=== PATIENT | male | born 2000 | race Caucasian/White ===

== ENCOUNTER → 2018-02-03 12:07 | Outpatient (CLI) | payer OTHER, MEDICAID, SELFPAY ==
--- NOTE | 2018-02-03 12:11 | DI.RAD.S_ITS ---
PROCEDURE: XR LUMBAR SPINE 2-3V INDICATIONS: back pain lower left lumbar region TECHNIQUE: 2 views of the lumbar spine were acquired. COMPARISON: None. FINDINGS: Bones: 5 [id number] vertebrae are present. There is normal bony alignment. No vertebral body compression fractures. No suspicious bony lesions. Soft tissues: Overlying bowel gas pattern is normal. No suspicious soft tissue calcifications. IMPRESSION: No trauma found. Source of low back pain not identified. Dictated by: Bijan Jefferson M.D. on 02/03/2018 at 13:37 Approved by: Bijan Jefferson M.D. on 02/03/2018 at 13:37
== END ==
PROVIDERS: PCP Family Medicine; Visit Provider Internal Medicine
DX: M54.5 Low back pain (principal); M54.6 Pain in thoracic spine
CPT/HCPCS: 72100

== ENCOUNTER → 2022-06-29 15:30 | Outpatient (CLI) | payer SELFPAY ==
[2022-06-29 17:18] LABS: Influenza A - CEPHEID Flu A POSITIVE (NEGATIVE); Influenza B - CEPHEID Flu B NEGATIVE (NEGATIVE); Respiratory Syncytial Virus Negative (Negative)
[2022-06-29 17:22] LABS: COVID-19 CEPHEID 4-PLEX PCR Negative (Negative)
== END ==
PROVIDERS: Visit Provider Student in an Organized Health Care Education/Training Program
DX: R05.1 Acute cough (principal); Z20.822 Contact with and (suspected) exposure to COVID-19
CPT/HCPCS: 0241U

== ENCOUNTER 2022-07-01 09:53 | Emergency (ER) | payer SELFPAY ==
[2022-07-01 10:20] VITALS: BP 133/78; PULSE 119; RESP 16; TEMP 37; O2SAT 96; BMI 21.2
[2022-07-01 14:33] VITALS: BP 130/77; PULSE 93; O2SAT 97
[2022-07-01] MEDS: ONDANSETRON 4 MG/2 ML INJ IV (14:44)
[2022-07-01] MEDS: SODIUM CHLORIDE 0.9% 1,000 ML 1000 ML IV (14:45)
--- NOTE | 2022-07-01 14:51 | ED_ITS ---
HPI - Nausea/Vomiting/Diarrhea <Soo Johnson PA-C - Last Filed: 07/01/22 17:33> General Chief complaint: Nausea/Vomiting/Diarrhea Stated complaint: flu+, not drinking or eating,vomiting Time Seen by Provider: 07/01/22 14:39 Source: patient Mode of arrival: Ambulatory History of Present Illness HPI Narrative: 22-year-old male who presents with concern for persistent vomiting and generally feeling unwell in the setting of flu. Patient states he is on a able to keep food and fluids down. He states that the oral Zofran he was prescribed was helpful yesterday but as of this morning he thinks he has vomited about 40 times. He says yesterday his vomit was clear and today it looks darker like bile. He has been alternating Tylenol and ibuprofen as well because of a sore throat. He states since he has been vomiting a lot it feels like there is ?razor blades? in his throat today from vomiting stomach acid which has made it difficult for him to eat and drink. He states today he has also had loose green stools approximately 10 of them. He denies any abdominal pain. Also denies chest pain and shortness of breath. His primary complaint is his sore throat as well as his frequent vomiting. He denies being a heavy drinker or any history of ulcers, also denies shortness of breath, frequent cough, productive cough, chest pain or any other symptoms. He does state that he uses (smokes) marijuana occasionally but not every day. Related Data Previous Rx's Medication Instructions Recorded cyclobenzaprine 5 mg tablet 5 mg PO BEDTIME PRN muscle spasm 02/03/18 #15 tabs valacyclovir 1 gram tablet 2,000 mg PO BID #4 tabs 07/27/19 albuterol sulfate 90 mcg/actuation 2 puff inhalation Q6H PRN 06/29/22 aerosol inhaler shortness of breath or wheezing #6.7 grams benzonatate 100 mg capsule 100 mg PO TID PRN cough 7 days #21 06/29/22 caps guaifenesin 100 mg/5 mL oral liquid 200 mg (10 mL) PO Q4H PRN cough, 06/29/22 chest congestion 10 days #500 mL ondansetron 4 mg disintegrating 4 mg PO Q8H PRN nausea and 06/29/22 tablet vomiting #30 tabs codeine 6.3 mg-guaifenesin 100 10 ml PO Q4-6H PRN flu symptoms 7 07/01/22 mg/5 mL oral liquid days #473 mL oseltamivir 75 mg capsule (Tamiflu) 75 mg PO BID 5 days #10 caps 07/01/22 Allergies Allergy/AdvReac Type Severity Reaction Status Date / Time No Known Drug Allergies Allergy Verified 07/01/22 10:20 Review of Systems <Soo Johnson PA-C - Last Filed: 07/01/22 17:33> Review of Systems Narrative: Unremarkable except as noted in the HPI Patient History <Soo Johnson PA-C - Last Filed: 07/01/22 17:33> Social History Smoking Status: Current every day smoker Smoking Status: Current every day smoker alcohol intake frequency: holidays/special occasions only Substance Use Type: does not use Exam <Soo Johnson PA-C - Last Filed: 07/01/22 17:33> Narrative Exam Narrative: GENERAL: 22 year old patient appears stated age. Well-developed patient, in mild distress, alert and interactive. HEAD: Atraumatic. Normocephalic. EYES: Pupils equal round and reactive. Extraocular motions intact. No scleral icterus. No injection or drainage. ENT: Nose without bleeding, purulent drainage. Throat with generalized erythema, without tonsillar hypertrophy or exudate. Airway patent. There is slight lymphadenopathy tonsillar and slight tenderness. NECK: Trachea midline. Non tender CARDIOVASCULAR: Regular rate and rhythm without murmurs, gallops, or rubs. RESPIRATORY: Clear to auscultation. Breath sounds equal bilaterally. No wheezes, rales, or rhonchi. GASTROINTESTINAL: Abdomen soft, non-tender, nondistended. EXTREMITIES: No edema or joint tenderness. BACK: Nontender without deformity or crepitance. No flank tenderness. NEURO: AOx3. SKIN: No rash or erythema of visible areas Initial Vital Signs Initial Vital Signs: Vital Signs Temperature 98.6 F 07/01/22 10:20 Pulse Rate 119 H 07/01/22 10:20 Respiratory Rate 16 07/01/22 10:20 Blood Pressure 133/78 07/01/22 10:20 Pulse Oximetry 96 07/01/22 10:20 Oxygen Delivery Method 07/01/22 10:20 <Josette Galvez DO - Last Filed: 07/02/22 19:30> Initial Vital Signs Initial Vital Signs: Vital Signs Temperature 98.6 F 07/01/22 10:20 Pulse Rate 119 H 07/01/22 10:20 Respiratory Rate 16 07/01/22 10:20 Blood Pressure 133/78 07/01/22 10:20 Pulse Oximetry 96 07/01/22 10:20 Oxygen Delivery Method 07/01/22 10:20 Course <Soo Johnson PA-C - Last Filed: 07/01/22 17:33> Orders Ordered: Discontinued Medications Guaifenesin/Codeine Phosphate (Codeine/Guaifenesin Liquid 5ml Udc) 10 ml PO NOW ONE Stop: 07/01/22 15:10 Last Admin: 07/01/22 15:41 Dose: 10 ml Documented By: YUE Sodium Chloride (Normal Saline 0.9%) 1,000 mls @ 1,000 mls/hr IV BOLUS ONE Stop: 07/01/22 15:38 Last Infusion: 07/01/22 16:44 Dose: 0 mls/hr Documented By: Admin: 07/01/22 14:45 Dose: 1,000 mls/hr Documented By: YUE Ondansetron HCl (Ondansetron 4 Mg/2 Ml Inj) 4 mg IV NOW ONE Stop: 07/01/22 14:40 Last Admin: 07/01/22 14:44 Dose: 4 mg Documented By: YUE Vital Signs Vital signs: Vital Signs - 8 hr 07/01/22 14:33 07/01/22 14:33 07/01/22 15:00 Pulse Rate 93 H 89 Blood Pressure 130/77 Pulse Oximetry 97 94 <Josette Galvez DO - Last Filed: 07/02/22 19:30> Orders Ordered: Discontinued Medications Guaifenesin/Codeine Phosphate (Codeine/Guaifenesin Liquid 5ml Udc) 10 ml PO NOW ONE Stop: 07/01/22 15:10 Last Admin: 07/01/22 15:41 Dose: 10 ml Documented By: YUE Sodium Chloride (Normal Saline 0.9%) 1,000 mls @ 1,000 mls/hr IV BOLUS ONE Stop: 07/01/22 15:38 Last Infusion: 07/01/22 16:44 Dose: 0 mls/hr Documented By: Admin: 07/01/22 14:45 Dose: 1,000 mls/hr Documented By: YUE Ondansetron HCl (Ondansetron 4 Mg/2 Ml Inj) 4 mg IV NOW ONE Stop: 07/01/22 14:40 Last Admin: 07/01/22 14:44 Dose: 4 mg Documented By: YUE Vital Signs Vital signs: Vital Signs - 8 hr 07/01/22 14:33 07/01/22 14:33 07/01/22 15:00 Pulse Rate 93 H 89 Blood Pressure 130/77 Pulse Oximetry 97 94 MDM - Nausea/Vomiting/Diarrhea <Soo Johnson PA-C - Last Filed: 07/01/22 17:33> Lab Data Result diagrams: 07/01/22 14:50 07/01/22 14:50 Labs: Lab Results 07/01/22 07/01/22 Range/Units 14:50 14:50 WBC 5.0 (4.5-11.0) X10^3/uL RBC 5.41 (4.5-5.9) X10^6/uL Hgb 16.4 (13.5-17.5) g/dL Hct 47.2 (41-53) % MCV 87.3 (80-100) fL MCH 30.4 (26-34) PG MCHC 34.8 (30-36) % RDW 12.7 (11.6-14.8) % Plt Count 151 (150-400) X10^3/uL Neut % (Auto) 88.4 H (50-75) % Lymph % (Auto) 4.2 L (25-40) % Pershing % (Auto) 7.2 (3-14) % Eos % (Auto) 0.0 L (2-4) % Baso % (Auto) 0.2 (0-2) % Neut # (Auto) 4400 (7475-7817) /uL Lymph # (Auto) 200 L (4757-7250) /uL Pershing # (Auto) 400 (0-900) /uL Eos # (Auto) 0 (0-450) /uL Baso # (Auto) 0 (0-100) /uL Sodium 140 (137-145) mmol/L Potassium 4.3 (3.4-5.1) mmol/L Chloride 97 L (98-107) mmol/L Carbon Dioxide 23 (22-32) mmol/L BUN 20 (9-20) mg/dL Creatinine 1.13 (0.66-1.25) mg/dL Estimated GFR > 60 (>60) mL/min BUN/Creatinine Ratio 17.7 (6-22) Glucose 121 H (70-100) mg/dL Calcium 9.1 (8.4-10.2) mg/dL Total Bilirubin 0.4 (0.2-1.3) mg/dL AST 61 H (17-59) IU/L ALT 36 (<50) IU/L Alkaline Phosphatase 54 (38-126) U/L Total Protein 8.7 H (6.3-8.2) g/dL Albumin 5.0 (3.5-5.0) g/dL Globulin 3.7 (1.7-4.1) g/dL Albumin/Globulin Ratio 1.4 (1.0-2.8) MDM Narrative Medical decision making narrative: 22-year-old male who has been sick with influenza for about 4 days presents with concern for persistent vomiting earlier this morning unrelieved by oral Zofran as well as some diarrhea. Patient also complaining of throat pain associated with frequent vomiting. Labs today are unremarkable and not suggestive of significant dehydration. Patient received IV fluids as well as IV Zofran and codeine cough syrup for throat discomfort and overall was feeling much better. Patient is tolerating fluids well and plan for discharge to home with continued p.o. Zofran as needed as well as cough medicine for cough and throat discomfort. Low suspicion for other acute process to explain the patient's symptoms. Return precautions provided, follow-up plan discussed, all questions answered. <Josette Galvez, DO - Last Filed: 07/02/22 19:30> Lab Data Labs: Lab Results 07/01/22 07/01/22 Range/Units 14:50 14:50 WBC 5.0 (4.5-11.0) X10^3/uL RBC 5.41 (4.5-5.9) X10^6/uL Hgb 16.4 (13.5-17.5) g/dL Hct 47.2 (41-53) % MCV 87.3 (80-100) fL MCH 30.4 (26-34) PG MCHC 34.8 (30-36) % RDW 12.7 (11.6-14.8) % Plt Count 151 (150-400) X10^3/uL Neut % (Auto) 88.4 H (50-75) % Lymph % (Auto) 4.2 L (25-40) % Pershing % (Auto) 7.2 (3-14) % Eos % (Auto) 0.0 L (2-4) % Baso % (Auto) 0.2 (0-2) % Neut # (Auto) 4400 (1493-1123) /uL Lymph # (Auto) 200 L (8412-3394) /uL Pershing # (Auto) 400 (0-900) /uL Eos # (Auto) 0 (0-450) /uL Baso # (Auto) 0 (0-100) /uL Sodium 140 (137-145) mmol/L Potassium 4.3 (3.4-5.1) mmol/L Chloride 97 L (98-107) mmol/L Carbon Dioxide 23 (22-32) mmol/L BUN 20 (9-20) mg/dL Creatinine 1.13 (0.66-1.25) mg/dL Estimated GFR > 60 (>60) mL/min BUN/Creatinine Ratio 17.7 (6-22) Glucose 121 H (70-100) mg/dL Calcium 9.1 (8.4-10.2) mg/dL Total Bilirubin 0.4 (0.2-1.3) mg/dL AST 61 H (17-59) IU/L ALT 36 (<50) IU/L Alkaline Phosphatase 54 (38-126) U/L Total Protein 8.7 H (6.3-8.2) g/dL Albumin 5.0 (3.5-5.0) g/dL Globulin 3.7 (1.7-4.1) g/dL Albumin/Globulin Ratio 1.4 (1.0-2.8) Discharge Plan Departure Patient Disposition: Home Clinical Impression: Influenza, Vomiting Instructions: DI for Influenza -- Adult, DI for Vomiting -- Adult Activity Restrictions/Additional Instructions: Thank you for letting us be part of your care in the emergency department today. Your labs today actually did not show evidence of dehydration. We did give you fluids today in the emergency department and some cough medicine with some pain control on it to help with your sore throat. I believe that your symptoms are consistent with influenza which even suffering from for a few days. You can continue Tylenol and ibuprofen as tolerated for pain, I have also prescribed some more of this cough medicine that you had today in the emergency department you should not take this and the other guaifenesin cough medicine at the same time. You should try to stay hydrated but you may need to drink fluids in small amounts to prevent herself from vomiting. Please continue with oral Zofran to keep your vomiting symptoms at [place]. There is no evidence of an emergent or life threatening illness at this time, but follow up with your doctor in 1-2 days is recommended nonetheless to continue to rule out serious underlying causes of your symptoms. Please call the office for an appointment. Please return to the Emergency Department for any worsening or persistent symptoms. Please take medications as directed. Prescriptions: New codeine-guaifenesin 6.3-100 mg/5 mL liquid 10 ml PO Q4-6H PRN (Reason: flu symptoms) 7 Days Qty: 473 0RF No Action ondansetron 4 mg tablet,disintegrating 4 mg PO Q8H PRN (Reason: nausea and vomiting) Qty: 30 0RF benzonatate 100 mg capsule 100 mg PO TID PRN (Reason: cough) 7 Days Qty: 21 1RF guaifenesin 100 mg/5 mL liquid 200 mg PO Q4H PRN (Reason: cough, chest congestion) 10 Days Qty: 500 0RF albuterol sulfate 90 mcg/actuation HFA aerosol inhaler 2 puff inhalation Q6H PRN (Reason: shortness of breath or wheezing) Qty: 6.7 0RF valacyclovir 1 gram tablet 2,000 mg PO BID Qty: 4 5RF oseltamivir [Tamiflu] 75 mg capsule 75 mg PO BID 5 Days Qty: 10 0RF cyclobenzaprine 5 mg tablet 5 mg PO BEDTIME PRN (Reason: muscle spasm) Qty: 15 0RF Referrals: Miscellaneous,Doctor, MD [Primary Care Provider] - Visit Report Forms: Patient Portal/API <Josette Galvez DO - Last Filed: 07/02/22 19:30> Cosign ED Attending Cosignature Attestation: I was immediately available in the department for consultation. Documentation has been reviewed. I agree with assessment and plan.
[2022-07-01 14:58] LABS: Add Manual Diff / Slide Review NO; Basophils Absolute Auto 0 /uL (0-100); Basophils Percent Auto 0.2 % (0-2); Eosinophils Absolute Auto 0 /uL (0-450); Hematocrit 47.2 % (41-53); Hemoglobin 16.4 g/dL (13.5-17.5); Lymphocytes Absolute Auto 200 /uL (1100-4500); Lymphocytes Percent Auto 4.2 % (25-40); Mean Corpuscular HGB Conc 34.8 % (30-36); Mean Corpuscular Hemoglobin 30.4 PG (26-34); Mean Corpuscular Volume 87.3 fL (80-100); Monocytes Absolute Auto 400 /uL (0-900); Monocytes Percent Auto 7.2 % (3-14); Neutrophils Absolute Auto 4400 /uL (1500-7000); Neutrophils Percent Auto 88.4 % (50-75); Platelet Count 151 X10^3/uL (150-400); Red Blood Cell Count 5.41 X10^6/uL (4.5-5.9); Red Cell Distribution Width 12.7 % (11.6-14.8)
[2022-07-01 15:00] VITALS: PULSE 89; O2SAT 94
[2022-07-01 15:12] LABS: Alanine Aminotransferase 36 IU/L (<50); Albumin Globulin Ratio 1.4 (1.0-2.8); Alkaline Phosphatase 54 U/L (38-126); Aspartate Aminotransferase 61 IU/L (17-59); BUN Creatinine Ratio 17.7 (6-22); Bilirubin Total 0.4 mg/dL (0.2-1.3); Blood Urea Nitrogen 20 mg/dL (9-20); Calcium 9.1 mg/dL (8.4-10.2); Carbon Dioxide 23 mmol/L (22-32); Chloride 97 mmol/L (98-107); Estimated Glomerular Filt Rate > 60 mL/min (>60); Globulin 3.7 g/dL (1.7-4.1); Glucose 121 mg/dL (70-100); HEMOLYSIS 18 (0-50); Potassium 4.3 mmol/L (3.4-5.1); Sodium 140 mmol/L (137-145); Total Protein 8.7 g/dL (6.3-8.2)
[2022-07-01] MEDS: CODEINE/GUAIFENESIN LIQUID 5ML UDC 10 ML PO (15:41)
== END 2022-07-01 16:45 | disposition home or self-care (01) ==
PROVIDERS: Emergency Provider Student in an Organized Health Care Education/Training Program
DX: J11.1 Influenza due to unidentified influenza virus with other respiratory manifestations (principal); R11.2 Nausea with vomiting, unspecified; F17.200 Nicotine dependence, unspecified, uncomplicated
CPT/HCPCS: 80053; 85025; 96374; 99284; J2405

== ENCOUNTER → 2025-05-05 09:02 | Outpatient (CLI) | payer OTHER, SELFPAY ==
--- NOTE | 2025-05-05 09:04 | DI.RAD.S_ITS ---
PROCEDURE: XR LUMBAR SPINE 2-3V INDICATIONS: Sciatica, left side TECHNIQUE: 3 views of the lumbar spine were acquired. COMPARISON: [facility], CR, XR LUMBAR SPINE 2-3V, 02/03/2018, 11:50. FINDINGS: Bones: 5 [id number] vertebrae are present. Minimal retrolisthesis of L3 on L4 and L4 on L5 and L5 on S1. No vertebral body compression fractures. No suspicious bony lesions. Mild disc height loss at L5-S1. Soft tissues: Overlying bowel gas pattern is normal. No suspicious soft tissue calcifications. IMPRESSION: Mild disc height loss at L5-S1. Dictated by: Matt Melvin M.D. on 05/05/2025 at 10:18 Approved by: Matt Melvin M.D. on 05/05/2025 at 10:19
== END ==
PROVIDERS: PCP Family Medicine; Referring Provider Family Medicine; Visit Provider Family Medicine
DX: M46.1 Sacroiliitis, not elsewhere classified (principal); M54.32 Sciatica, left side
CPT/HCPCS: 72100